=== PATIENT | female | born 1955 | race Two or more races ===

== ENCOUNTER 2018-03-28 16:10 | Emergency (ER) | payer SELFPAY ==
[~2018-03-28] VITALS: Ht 157.5 cm; Wt 68.9 kg
[2018-03-28] MEDS ORDERED: IV NORMAL SALINE 1000ML BAG 1,000 ML IV SCH (16:46)
[2018-03-28] MEDS ORDERED: ONDANSETRON PF 4 MG/2 ML VIAL. IV ONE (17:00)
[2018-03-28] MEDS ORDERED: PANTOPRAZOLE IV PUSH 40 MG VIAL. IVP ONE (17:00)
--- NOTE | 2018-03-28 17:22 | PHYS DOC ---
Adult General Chief Complaint Chief Complaint: HYPERGLYCEMIA HPI HPI Patient is a 63 year old female who presents with [facility] today where they took her blood sugar and it read over 500. Patient states she's been out of her medicines for the last 3-4 days. Patient also had increased symptoms of urine frequent urination, dizziness, diabetic neuropathies, increased thirst. Patient does not have a primary care provider. Patient states that she is always had tingling and throbbing in her hands, his fingers and toes but it has increased over the last 3-4 days. She also vomited once today. Review of Systems Review of Systems Constitutional: Denies fever or chills [] Eyes: Denies change in visual acuity, redness, or eye pain [] HENT: Denies nasal congestion or sore throat [] Respiratory: Denies cough or shortness of breath [] Cardiovascular: No additional information not addressed in HPI [] GI: Generalized abdominal pain, nausea, vomiting, denies bloody stools or diarrhea [] : Denies dysuria or hematuria [] Musculoskeletal: Denies back pain or joint pain [] Integument: Denies rash or skin lesions [] Neurologic: Neuropathies. Denies headache, focal weakness or sensory changes [] Endocrine: polyuria or polydipsia [] All other systems were reviewed and found to be within normal limits, except as documented in this note. Current Medications Current Medications Current Medications Medications (Trade) Dose Ordered Sig/Sarah Start Time Stop Time Status Last Admin Dose Admin Insulin Human Regular (HumuLIN R VIAL) 10 unit 1X ONCE 03/28/18 19:15 03/28/18 19:16 DC 03/28/18 19:25 5 UNIT Ondansetron HCl (Zofran) 4 mg 1X ONCE 03/28/18 17:00 03/28/18 17:10 DC 03/28/18 17:17 4 MG Pantoprazole Sodium (PROTONIX VIAL for IV PUSH) 40 mg 1X ONCE 03/28/18 17:00 03/28/18 17:10 DC 03/28/18 17:17 40 MG Sodium Chloride 1,000 ml @ 1,000 mls/hr 1X ONCE 03/28/18 19:15 03/28/18 20:14 DC 03/28/18 19:20 1,000 MLS/HR Allergies Allergies Allergies Coded Allergies Type Severity Reaction Last Updated Verified No Known Drug Allergies 03/28/18 No Physical Exam Physical Exam Constitutional: Well developed, well nourished, no acute distress, non-toxic appearance. [] HENT: Normocephalic, atraumatic, bilateral external ears normal, oropharynx moist, no oral exudates, nose normal. [] Eyes: PERRLA, EOMI, conjunctiva normal, no discharge. [] Neck: Normal range of motion, no tenderness, supple, no stridor. [] Cardiovascular:Heart rate regular rhythm, no murmur [] Lungs & Thorax: Bilateral breath sounds clear to auscultation [] Abdomen: Bowel sounds normal, soft, generalized tenderness, no masses, no pulsatile masses. [] Skin: Warm, dry, no erythema, no rash. [] Back: No tenderness, no CVA tenderness. [] Extremities: No tenderness, no cyanosis, no clubbing, ROM intact, no edema. [] Neurologic: Alert and oriented X 3, normal motor function, normal sensory function, no focal deficits noted. [] Psychologic: Affect normal, judgement normal, mood normal. [] Current Patient Data Vital Signs Vital Signs Date Time Temp Pulse Resp B/P (MAP) Pulse Ox O2 Delivery O2 Flow Rate FiO2 03/28/18 18:50 70 126/63 (84) 96 Room Air 03/28/18 16:10 97.4 20 97.4 Lab Values Laboratory Tests Test 03/28/18 17:01 03/28/18 17:11 03/28/18 18:30 03/28/18 18:33 Glucose (Fingerstick) 299 mg/dL (70-99) H 291 mg/dL (70-99) H White Blood Count 6.3 x10^3/uL (4.0-11.0) Red Blood Count 3.93 x10^6/uL (3.50-5.40) Hemoglobin 12.7 g/dL (12.0-15.5) Hematocrit 36.6 % (36.0-47.0) Mean Corpuscular Volume 93 fL (79-100) Mean Corpuscular Hemoglobin 32 pg (25-35) Mean Corpuscular Hemoglobin Concent 35 g/dL (31-37) Red Cell Distribution Width 12.9 % (11.5-14.5) Platelet Count 196 x10^3/uL (140-400) Neutrophils (%) (Auto) 58 % (31-73) Lymphocytes (%) (Auto) 33 % (24-48) Monocytes (%) (Auto) 6 % (0-9) Eosinophils (%) (Auto) 2 % (0-3) Basophils (%) (Auto) 1 % (0-3) Neutrophils # (Auto) 3.7 x10^3uL (1.8-7.7) Lymphocytes # (Auto) 2.1 x10^3/uL (1.0-4.8) Monocytes # (Auto) 0.4 x10^3/uL (0.0-1.1) Eosinophils # (Auto) 0.1 x10^3/uL (0.0-0.7) Basophils # (Auto) 0.0 x10^3/uL (0.0-0.2) Sodium Level 141 mmol/L (136-145) Potassium Level 3.5 mmol/L (3.5-5.1) Chloride Level 105 mmol/L (98-107) Carbon Dioxide Level 26 mmol/L (21-32) Anion Gap 10 (6-14) Blood Urea Nitrogen 17 mg/dL (7-20) Creatinine 0.8 mg/dL (0.6-1.0) Estimated GFR (Cockcroft-Gault) 72.2 BUN/Creatinine Ratio 21 (6-20) H Glucose Level 340 mg/dL (70-99) H Calcium Level 9.8 mg/dL (8.5-10.1) Total Bilirubin 0.4 mg/dL (0.2-1.0) Aspartate Amino Transferase (AST) 73 U/L (15-37) H Alanine Aminotransferase (ALT) 96 U/L (14-59) H Alkaline Phosphatase 167 U/L (46-116) H Total Protein 7.3 g/dL (6.4-8.2) Albumin 2.9 g/dL (3.4-5.0) L Albumin/Globulin Ratio 0.7 (1.0-1.7) L Lipase 326 U/L (73-393) Urine Collection Type Unknown Urine Color Yellow Urine Clarity Clear Urine pH 6.0 Urine Specific [place] >=1.030 Urine Protein >=300 mg/dL (NEG-TRACE) Urine Glucose (UA) >=1000 mg/dL (NEG) Urine Ketones (Stick) Negative mg/dL (NEG) Urine Blood Negative (NEG) Urine Nitrite Negative (NEG) Urine Bilirubin Negative (NEG) Urine Urobilinogen Dipstick 1.0 mg/dL (0.2 mg/dL) Urine Leukocyte Esterase Negative (NEG) Urine RBC 1-2 /HPF (0-2) Urine WBC 5-10 /HPF (0-4) Urine Squamous Epithelial Cells Mod /LPF Urine Bacteria Few /HPF (0-FEW) Urine Hyaline Casts Moderate /HPF Urine Mucus Mod /LPF Urine Yeast Present /HPF Test 03/28/18 19:47 Glucose (Fingerstick) 184 mg/dL (70-99) H Laboratory Tests 03/28/18 17:11 Laboratory Tests 03/28/18 17:11 EKG EKG Sinus Rhythm, no STEMI Interpretation Time: [address] White Radiology/Procedures Radiology/Procedures Chest xray Course & Med Decision Making Course & Med Decision Making Patient is a 63 year old female who presents with [facility] today where they took her blood sugar and it read over 500. Patient states she's been out of her medicines for the last 3-4 days. Patient also had increased symptoms of urine frequent urination, dizziness, diabetic neuropathies, increased thirst. Patient does not have a primary care provider. Patient states that she is always had tingling and throbbing in her hands, his fingers and toes but it has increased over the last 3-4 days. She also vomited once today. Patient has generalized abdominal pain with palpation which she states that is nothing new she rates it a 7 out of 10. Patient does have a history of gastritis, diabetes, hypertension, asthma. Patient's current bowel syndrome 78 heart rate, 99% on room air, 171/79, 97.4, 18 respirations. Patient is alert and oriented and Faroese-speaking only. Np phone was used. Lungs are clear to auscultation in all lobes. Patient denies chest pain, diarrhea, fever, shortness of air, dizziness or syncope. Heart rate regular without murmur. She has no swelling in extremities. Patient states that she is out of Provera inhaler, amlodipine, hydrochlorothiazide, losartan, metformin, pantoprazole, acarbose. Mucous membranes are moist, skin is pink warm and dry. Dr Arrington read chest xray as no acute findings. Vital signs are 71 hr, 99% ra , 155/68. Patients blood sugar is 291 after 1 bag of NS. Patienti s given a second bag of NS and 5u of Regular insulin. 1950: Nurse states that she walked into the room to reassess the patient and she was eating [employer] wolof fries. The wolof fries are taken from the patient. 2011: re check of blood sugar after insulin is 189. Patient discharged home and to follow up with [facility]. Madeline Disclaimer Dragon Disclaimer This electronic medical record was generated, in whole or in part, using a voice recognition dictation system. Departure Departure Impression: Primary Impression: Hyperglycemia Additional Impression: Medication refill Disposition: HOME, SELF-CARE Condition: STABLE Patient Instructions: Hyperglycemia Additional Instructions: Take medications as prescribed. Follow up with [facility] on Saturday to get full prescription refills. Scripts Acarbose (ACARBOSE) 50 Mg Tablet 50 MG PO BID for 5 Days, #10 TAB Prov: DULCE TATE APRN 03/28/18 Pantoprazole Sodium (PROTONIX) 20 Mg Tablet.dr 40 MG PO DAILY, #10 TAB Prov: DULCE TATE APRN 03/28/18 Metformin Hcl (METFORMIN HCL) 850 Mg Tablet 850 MG PO DAILYWBKFT for ANTI-DIABETIC, #5 TAB 0 Refills Prov: DULCE TATE APRN 03/28/18 Losartan Potassium (LOSARTAN POTASSIUM) 50 Mg Tablet 50 MG PO DAILY for HYPERTENSION, #5 TAB Prov: DULCE TATE APRN 03/28/18 Hydrochlorothiazide (HYDROCHLOROTHIAZIDE TABLET ) 25 Mg Tablet 25 MG PO DAILY for DIURETIC, #5 TAB 0 Refills Prov: DULCE TATE APRN 03/28/18 Amlodipine Besylate (AMLODIPINE BESYLATE) 5 Mg Tablet 5 MG PO DAILY, #5 TAB Prov: DULCE TATE APRN 03/28/18 Albuterol Sulfate (PROAIR HFA INHALER) 8.5 Gm Hfa.aer.ad 1 PUFF INH PRN Q6HRS PRN for SHORTNESS OF BREATH, #1 INHALER 0 Refills Prov: DULCE TATE APRN 03/28/18 Problem Qualifiers DULCE TATE APRN Mar 28, 2018 17:22
[2018-03-28 17:43] LABS: BASO % 1 % (0-3); EOS # 0.1 x10^3/uL (0.0-0.7); EOS % 2 % (0-3); HEMATOCRIT 36.6 % (36.0-47.0); HEMOGLOBIN 12.7 g/dL (12.0-15.5); LYMPH # 2.1 x10^3/uL (1.0-4.8); LYMPH % 33 % (24-48); MEAN CORPUSCULAR HEMOGLOBIN 32 pg (25-35); MEAN CORPUSCULAR HGB CONC 35 g/dL (31-37); MEAN CORPUSCULAR VOLUME 93 fL (79-100); MONO # 0.4 x10^3/uL (0.0-1.1); MONO % 6 % (0-9); NEUT # 3.7 x10^3uL (1.8-7.7); NEUT % 58 % (31-73); PLATELET COUNT 196 x10^3/uL (140-400); RED BLOOD COUNT 3.93 x10^6/uL (3.50-5.40); RED CELL DISTRIBUTION WIDTH 12.9 % (11.5-14.5); WHITE BLOOD COUNT 6.3 x10^3/uL (4.0-11.0)
[2018-03-28 17:48] LABS: CALCIUM 9.8 mg/dL (8.5-10.1); CREATININE 0.8 mg/dL (0.6-1.0); GFR 72.2; POTASSIUM 3.5 mmol/L (3.5-5.1)
[2018-03-28 17:54] LABS: ALBUMIN 2.9 g/dL (3.4-5.0); ALBUMIN/GLOBULIN RATIO 0.7 (1.0-1.7); TOTAL BILIRUBIN 0.4 mg/dL (0.2-1.0); TOTAL PROTEIN 7.3 g/dL (6.4-8.2)
[2018-03-28 18:36] LABS: BILIRUBIN,URINE NEGATIVE (NEG); CLARITY,URINE CLEAR; COLOR,URINE YELLOW; NITRITE,URINE NEGATIVE (NEG); PROTEIN,URINE >=300 mg/dL (NEG-TRACE)
[2018-03-28 18:47] LABS: HYALINE CASTS, URINE MODERATE /HPF; SQUAMOUS EPITHELIAL CELL,UR MOD /LPF
[2018-03-28 18:48] LABS: BACTERIA,URINE FEW /HPF (0-FEW); YEAST,URINE PRESENT /HPF
[2018-03-28] MEDS ORDERED: INSULIN REGULAR 100 UNIT/ML 3ML VIAL. IV ONE (19:15)
[2018-03-28] MEDS ORDERED: IV NORMAL SALINE 1000ML BAG 1,000 ML IV ONE (19:15)
[2018-03-28 20:21] VITALS: BP 153/70
[2018-03-28] MEDS ORDERED: AMLO5TAB10 PO (20:24)
[2018-03-28] MEDS ORDERED: ACAR50TA PO (20:24)
[2018-03-28] MEDS ORDERED: LOSA-73 PO (20:24)
[2018-03-28] MEDS ORDERED: PANT20TA2 PO (20:24)
[2018-03-28] MEDS ORDERED: HYDR-2145 PO (20:24)
[2018-03-28] MEDS ORDERED: METF850T8 PO (20:24)
[2018-03-28] MEDS ORDERED: ALBU2.5V8 INH (20:24)
--- NOTE | 2018-03-31 14:19 | EKG ---
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
--- NOTE | 2018-04-01 09:23 | RAD ---
PORTABLE CHEST 1V Clinical indications: Swelling, mass left distal lateral side of femur near knee. Soft to palpate, baseball size lump. COMPARISON: None available. Findings: No acute lung infiltrate or pleural effusion or pulmonary edema or lung mass or pneumothorax is seen. The heart size, pulmonary vasculature, mediastinum and both parisa are unremarkable. Impression: No acute radiographic abnormality is seen. Electronically signed by: Vignesh Pereira MD (04/01/2018 9:20 AM) [id number]
== END 2018-03-28 20:33 | disposition home or self-care (01) ==
LOC: ER 16:10
DX: E11.65 Type 2 diabetes mellitus with hyperglycemia (principal); Z76.0 Encounter for issue of repeat prescription; R35.0 Frequency of micturition; R20.2 Paresthesia of skin; R11.10 Vomiting, unspecified; R63.1 Polydipsia
CPT/HCPCS: 36415; 71045; 80053; 81001; 82962; 83690; 85025; 87086; 93005; 96361; 96374; 96375; 99284; C9113; J1815; J2405; J7030